=== PATIENT | female | born 1980 | race African-American/Black ===

== ENCOUNTER 2017-10-03 02:19 | Emergency (ER) | payer MEDICAID, OTHER ==
[~2017-10-03] VITALS: Ht 167.6 cm; Wt 78.0 kg
[~2017-10-03 02:19] MED LIST: BENT20TA PO; LOPE2TAB3 PO; ZOFR4TAB3 SL
[2017-10-03 02:23] VITALS: BP 142/100; PULSE 109; RESP 20; TEMP 100.3; O2SAT 98
[2017-10-03] MEDS ORDERED: DEXAMETHASONE SOD PHOS 20 MG/5 ML VIAL IV PUSH ONE (03:15)
[2017-10-03] MEDS ORDERED: KETOROLAC TROMETHAMINE 30 MG/ML (IVP) VIAL IV PUSH ONE (03:15)
[2017-10-03 03:28] LABS: AUTOMATED NEUTROPHIL # 13.8 TH/MM3 (1.8-7.7); BASOPHIL # 0.1 TH/MM3 (0-0.2); BASOPHIL % 0.7 % (0.0-2.0); EOSINOPHIL # 0.1 TH/MM3 (0-0.4); EOSINOPHIL % 0.3 % (0.0-4.0); HEMATOCRIT 39.8 % (35.0-46.0); HEMOGLOBIN 13.2 GM/DL (11.6-15.3); LYMPH % 6.4 % (9.0-44.0); LYMPHOCYTE # 1.1 TH/MM3 (1.0-4.8); MEAN CELL VOLUME 89.4 FL (80.0-100.0); MEAN CORPUSCULAR HEMOGLOBIN 29.7 PG (27.0-34.0); MEAN CORPUSCULAR HGB CONC 33.3 % (32.0-36.0); MEAN PLATELET VOLUME 9.7 FL (7.0-11.0); MONO % 8.6 % (0.0-8.0); MONOCYTE # 1.4 TH/MM3 (0-0.9); PLATELET COUNT 165 TH/MM3 (150-450); RED BLOOD COUNT 4.45 MIL/MM3 (4.00-5.30); RED CELL DISTRIBUTION WIDTH 13.7 % (11.6-17.2); WHITE BLOOD COUNT 16.4 TH/MM3 (4.0-11.0)
[2017-10-03 03:42] LABS: BILIRUBIN, URINE NEG (NEG); BLOOD, URINE NEG (NEG); GLUCOSE,URINE NEG (NEG); KETONE, URINE 20 mg/dL (NEG); MUCUS URINE FEW /lpf (OCC); NITRITE,URINE NEG (NEG); SQUAMOUS EPITHELIAL CELL URINE 3 /hpf (0-5); URINE COLOR YELLOW (YELLW/STRAW); URINE LEUKOCYTE ESTERASE NEG (NEG)
[2017-10-03 03:48] LABS: ALKALINE PHOSPHATASE 71 U/L (45-117); TOTAL BILIRUBIN ADULT 0.3 MG/DL (0.2-1.0); TOTAL PROTEIN 8.3 GM/DL (6.4-8.2)
[2017-10-03 03:57] LABS: ALBUMIN 3.7 GM/DL (3.4-5.0); ALT (GPT) 16 U/L (10-53); AST (GOT) 18 U/L (15-37); BICARBONATE 22.5 MEQ/L (21.0-32.0); BLOOD UREA NITROGEN 7 MG/DL (7-18); CHLORIDE 101 MEQ/L (98-107); CREATININE 0.75 MG/DL (0.50-1.00); GLOMERULAR FILTRATION RATE 106 ML/MIN (>89); GLUCOSE,RANDOM 110 MG/DL (74-106); SODIUM (NA) 135 MEQ/L (136-145)
--- NOTE | 2017-10-03 05:37 | PD ---
HPI Chief Complaint: Cold / Flu Symptoms Time Seen by Provider: 02:44 Travel History International Travel<30 days: No Contact w/Intl Traveler<30days: No Traveled to known affect area: No History of Present Illness HPI 37-year-old female with a 2 day history of body aches back pain sore throat and general malaise. She states that she feels as if she has the flu but her primary concern is her low back pain. She has no urinary complaints with change in urinary habits. She has no paresthesias. Her symptoms began as mild symptoms and gradually worsened. No prior episodes She also denies dysuria frequency urgency PFSH Past Medical History Diminished Hearing: No Migraines: Yes : 4 Para: 4 Tubal Ligation: Yes Past Surgical History Section: Yes (X4) Cholecystectomy: Yes (2009) Social History Alcohol Use: Yes (ONCE OR TWICE/WEEK SOCIALLY/FEW BEERS) Tobacco Use: No Substance Use: Yes (MARIJUANA) Allergies-Medications (Allergen,Severity, Reaction): Coded Allergies: No Known Allergies (Unverified Adverse Reaction, Unknown, 10/03/17) Reported Meds & Prescriptions Reported Meds & Active Scripts Active Zofran Odt (Ondansetron Odt) 4 Mg Tab 4 Mg SL Q8HR PRN May substitute non-ODT form. Review of Systems Except as stated in HPI: all other systems reviewed are Neg Genitourinary: No: Urgency, Frequency, Dysuria, Hematuria Musculoskeletal: Positive: Myalgias, Arthralgias, Other (Low back pain) Neurologic: No: Weakness, Dizziness, Syncope Physical Exam Narrative GENERAL: [-] SKIN: Focused skin assessment warm/dry. HEAD: Atraumatic. Normocephalic. EYES: Pupils equal and round. No scleral icterus. No injection or drainage. ENT: No nasal bleeding or discharge. Mucous membranes pink and moist. NECK: Trachea midline. No JVD. CARDIOVASCULAR: Regular rate and rhythm. No murmur appreciated. RESPIRATORY: No accessory muscle use. Clear to auscultation. Breath sounds equal bilaterally. GASTROINTESTINAL: Abdomen soft, non-tender, nondistended. Hepatic and splenic margins not palpable. MUSCULOSKELETAL: No obvious deformities. No clubbing. No cyanosis. low back pain Data Data Last Documented VS Vital Signs Date Time Temp Pulse Resp B/P (MAP) Pulse Ox O2 Delivery O2 Flow Rate FiO2 10/03/17 02:23 100.3 109 20 142/100 (114) 98 Orders Orders Urinalysis - C+S If Indicated (10/03/17 03:01) Influenzae A/B Antigen (10/03/17 03:01) Group A Rapid Strep Screen (10/03/17 03:01) Complete Blood Count With Diff (10/03/17 03:01) Comprehensive Metabolic Panel (10/03/17 03:01) Dexamethasone Inj (Decadron Inj) (10/03/17 03:15) Ed Urine Pregnancytest Poc (10/03/17 03:01) Ketorolac Inj (Toradol Inj) (10/03/17 03:15) Strep Culture (Group A) (10/03/17 03:10) Labs Laboratory Tests Test 10/03/17 03:10 White Blood Count 16.4 TH/MM3 Red Blood Count 4.45 MIL/MM3 Hemoglobin 13.2 GM/DL Hematocrit 39.8 % Mean Corpuscular Volume 89.4 FL Mean Corpuscular Hemoglobin 29.7 PG Mean Corpuscular Hemoglobin Concent 33.3 % Red Cell Distribution Width 13.7 % Platelet Count 165 TH/MM3 Mean Platelet Volume 9.7 FL Neutrophils (%) (Auto) 84.0 % Lymphocytes (%) (Auto) 6.4 % Monocytes (%) (Auto) 8.6 % Eosinophils (%) (Auto) 0.3 % Basophils (%) (Auto) 0.7 % Neutrophils # (Auto) 13.8 TH/MM3 Lymphocytes # (Auto) 1.1 TH/MM3 Monocytes # (Auto) 1.4 TH/MM3 Eosinophils # (Auto) 0.1 TH/MM3 Basophils # (Auto) 0.1 TH/MM3 CBC Comment DIFF FINAL Differential Comment Urine Color YELLOW Urine Turbidity HAZY Urine pH 6.0 Urine Specific [place] 1.023 Urine Protein 30 mg/dL Urine Glucose (UA) NEG mg/dL Urine Ketones 20 mg/dL Urine Occult Blood NEG Urine Nitrite NEG Urine Bilirubin NEG Urine Leukocyte Esterase NEG Urine RBC 2 /hpf Urine WBC 2 /hpf Urine Squamous Epithelial Cells 3 /hpf Urine Mucus FEW /lpf Microscopic Urinalysis Comment CULT NOT INDICATED Blood Urea Nitrogen 7 MG/DL Creatinine 0.75 MG/DL Random Glucose 110 MG/DL Total Protein 8.3 GM/DL Albumin 3.7 GM/DL Calcium Level 9.0 MG/DL Alkaline Phosphatase 71 U/L Aspartate Amino Transf (AST/SGOT) 18 U/L Alanine Aminotransferase (ALT/SGPT) 16 U/L Total Bilirubin 0.3 MG/DL Sodium Level 135 MEQ/L Potassium Level 3.8 MEQ/L Chloride Level 101 MEQ/L Carbon Dioxide Level 22.5 MEQ/L Anion Gap 12 MEQ/L Estimat Glomerular Filtration Rate 106 ML/MIN MDM Medical Decision Making Medical Screen Exam Complete: Yes Emergency Medical Condition: Yes Differential Diagnosis UTI, influenza, strep throat, non-influenza viral infection Narrative Course Patient was seen and evaluated in the emergency department. All of her screening tests were negative. She was given analgesic and steroid while in the ER. Her symptoms have significantly improved. Patient is discharged home with prescriptions and will follow up with her family doctor in 1-2 days Diagnosis Primary Impression: Back pain Qualified Codes: M54.5 - Low back pain Additional Impression: Viral illness Patient Instructions: Acute Low Back Pain (ED), General Instructions Disposition: 01 DISCHARGE HOME Condition: Good Barb Salcido DO Oct 03, 2017 05:37
== END 2017-10-03 06:30 | disposition home or self-care (01) ==
LOC: NEPC 02:19
DX: M54.5 Low back pain (principal); B34.9 Viral infection, unspecified; F12.90 Cannabis use, unspecified, uncomplicated
CPT/HCPCS: 80053; 81001; 84703; 85025; 87081; 87804; 87880; 96374; 96375; 99284; J1100; J1885